=== PATIENT | female | born 1990 | race Two or more races ===

== ENCOUNTER 2017-06-15 16:34 | Emergency (ER) | payer BC ==
[~2017-06-15 16:34] MED LIST: Iopamidol 370 76% 100 ML VIAL ONE
[2017-06-15] MEDS ORDERED: Ondansetron PF 4 MG/2 ML Vial ONE ×2 (16:46→16:54)
[2017-06-15] MEDS ORDERED: Morphine 5 MG/ML SYRINGE ONE (16:54)
[2017-06-15 17:10] LABS: #Basophils 0.1 thou/uL (0.0-0.2); #Lymphocytes 0.7 thou/uL (1.20-3.40); #Monocytes 0.5 thou/uL (0.11-0.59); #Neutrophils 16.9 thou/uL (1.40-6.50); %Basophils 0.3 % (0.0-1.0); %Eosinophils 0.1 % (0.0-10.0); %Monocytes 2.5 % (0.0-10.0); %Neutrophils 93.2 % (42.0-75.0); Hemoglobin 14.2 g/dL (12.0-16.0); Mean Corpuscular HGB CONC 36.1 g/dL (32.0-36.0); Mean Corpuscular Volume 85.8 fl (81.0-99.0); Mean Platelet Volume 9.8 fL (7.4-10.4); Platelet Count 268 thou/uL (130-400); RBC Distribution Width 10.8 % (11.5-14.5); Red Blood Cell (RBC) Count 4.58 mill/uL (4.20-5.40); White Blood Cell (WBC) Count 18.2 thou/uL (4.8-10.8)
[2017-06-15 17:11] LABS: Bilirubin Small (Negative); Blood, Urine Negative (Negative); Clarity Cloudy (Clear); Glucose, Urine (Dipstick) Negative (Negative); Leukocyte Negative (Negative); Nitrite Negative (Negative); Protein, Urine (Dipstick) Negative (Neg-Trace)
[2017-06-15 17:13] LABS: BHCG - Serum Negative (NEGATIVE); Pregs Control Background? CLEAR/WHITE (CLR/WHITE); Pregs Control Bar Appear? YES (CONTROL BAR)
[2017-06-15 17:24] LABS: ALT (SGPT) 9 U/L (8-55); AST (SGOT) 13 U/L (5-34); Albumin 4.3 g/dL (3.5-5.0); Alkaline Phosphatase 47 U/L (40-150); Anion Gap 15 mmol/L (10-20); BUN (Urea Nitrogen) 8 mg/dL (7.0-18.7); Calc. Creatinine Clearance 0 mL/min (70-130); Calcium 8.9 mg/dL (7.8-10.44); Carbon Dioxide 21 mmol/L (22-29); Chloride 105 mmol/L (98-107); Estimated GFR-MDRD Greater than 90; Globulin 2.7 g/dL (2.4-3.5); Glucose 98 mg/dL (70-105); Lipase 7 U/L (8-78); Potassium 3.3 mmol/L (3.5-5.1); Sodium 138 mmol/L (136-145)
--- NOTE | 2017-06-15 19:05 | CT ---
CT CHEST AND ABDOMEN AND PELVIS WITH IV CONTRAST: 06/15/2017 PROVIDED CLINICAL HISTORY: Abdominal pain, status post fall. FINDINGS: The heart, pericardium, and great vessels demonstrate no evidence for a traumatic abnormality. The l ungs are free of significant opacity. There is no pleural fluid or pneumothorax apparent. The airwa y appears patent and of normal caliber. Hypodensities, too small to characterize, are seen within each kidney, statistically reflecting cysts . The solid abdominal organs demonstrate no evidence for a traumatic abnormality. There is a small amount of free fluid present within the pelvic cul-de-sac. There is questioned stra nding changes seen involving the peritoneal fat at the right lower quadrant. The appendix is surgica lly absent. The osseous structures demonstrate no osteoblastic or osteolytic lesions. There is no evidence for f racture. Thoracic and lumbar spine sagittal and coronal reconstructions demonstrate normal spinal al ignment and maintenance of vertebral body heights. IMPRESSION: 1. Small amount of nonspecific free fluid within the pelvis, which could be on the basis of phase of administration. Other etiologies are not excluded. 2. Questioned stranding changes within the right lower quadrant peritoneal fat, without obvious sour ce. POS: [facility]
--- NOTE | 2017-06-15 21:19 | ULT ---
PELVIC ULTRASOUND: 06/15/2017 HISTORY: Fall. Pain. COMPARISON: None. TECHNIQUE: Multiplanar valles-scale sonographic imaging of the pelvis obtained with transabdominal and endovaginal imaging. The ovaries are assessed with color-flow and spectral analysis. FINDINGS: The uterus measures 10.3 x 4.2 x 5.1 cm, with an endometrial stripe of 1 cm, within normal limits. N o uterine mass identified. The right ovary measures 3.9 x 2.9 x 2.4 cm, and the left ovary measures 3.2 x 2.7 x 1.7 cm. A small cyst is noted within the left ovary, measuring 1.5 cm. Multiple right o varian follicles are seen. Trace nonspecific free fluid is seen in the pelvis, within the cul-de-sac . IMPRESSION: Small volume fluid in the pelvic cul-de-sac. No acute findings. POS: [facility]
[2017-06-17 01:09] LABS: Chlamydia by PCR Not Detected (NotDetected); GC by PCR Not Detected (NotDetected)
== END 2017-06-15 20:39 | disposition home or self-care (01) ==
LOC: SCSER 16:34
DX: N83.201 Unspecified ovarian cyst, right side (principal)
CPT/HCPCS: 71260; 74177; 76856; 80053; 81003; 83690; 84703; 85025; 87480; 87491; 87510; 87591; 87660; 96361; 96374; 96375; J2270; J2405